=== PATIENT | male | born 1960 | race Caucasian/White ===

== ENCOUNTER → 2019-06-09 | Outpatient (CLI) | payer BC ==
[~2019-06-09] MED LIST: ASCO10002 PO; CALC-102 PO; COD1CAPS6 PO; SITA1TAB11 PO; TAMS0.4C2 PO
== END | disposition home or self-care (01) ==
LOC: SPEC 17:19
PROVIDERS: ATTEND Podiatrist Foot & Ankle Surgery
DX: E11.621 Type 2 diabetes mellitus with foot ulcer (principal)
CPT/HCPCS: 87071; 87075